=== PATIENT | female | born 1955 | race Caucasian/White ===

== ENCOUNTER → 2016-11-05 | Outpatient (CLI) | payer MEDICAID ==
[~2016-11-05] MED LIST: FLAX SEED OIL1000 M1 PO; MAGNESIUM CITR296 M1 PO; OYSTER CALCIUM500 MG PO; TUMERIC PO; VICODIN PO; VICOPROFEN 200-1 TAB PO; VITAMIN B12-FO1 EACH PO; VITAMIN C1000 M2 PO; VITAMIN D35000 UNIT PO
--- NOTE | ~2016-11-05 | MR103 ---
[facility] A Service of [facility] RADIOLOGY TEXT RESULTS PATIENT: RENALDO HERMAN LOCATION: [facility] : 51 UNIT #: [id number] AGE: [address]: ALLA MORTENSEN MD SEX: F ORDER DR: [id number] [address] [id number] MR#: [id number] Acc #: [id number] NAME: RENALDO HERMAN. : 1955 SEX: F STUDY DATE/TIME: 11/05/2016 11:07 UNIT: [facility] ROOM: STUDY DESCRIPTION: MR Knee Wo Contrast Lt Attending Physician: Alla Mortensen M.D. Referring Physician: Alla Mortensen M.D. Ordering Physician: Physician Non-Staff Primary Care Physician: Kathie Espinosa M.D. MRI CENTER REPORT This report is preliminary unless electronic signature is present. EXAM Left knee MRI without contrast, 11/05/2016 HISTORY 60-year-old female with left knee pain for 8-9 years. No specific injury. No prior left knee surgery. COMPARISON Left knee x-rays, 10/27/2016 TECHNIQUE Routine unenhanced multiplanar, multisequence high field MR imaging of the left knee was performed. FINDINGS There is a longitudinal horizontal oblique superior surface tear posterior horn of the medial meniscus. There is degenerative tearing of the body segment medial meniscus. There is a longitudinal horizontal oblique tear of the posterior horn and body segment of the lateral meniscus which contacts both articular surfaces. Cruciate and collateral ligaments appear intact. Extensor mechanism is intact. Moderate joint effusion with associated synovial proliferation. No popliteal cyst. Multifocal areas of high-grade chondromalacia throughout the patellofemoral joint. Prominent patellofemoral marginal osteophytes. There is moderate-grade chondromalacia along the weightbearing surfaces in the lateral compartment. Extensive full-thickness articular cartilage loss throughout the medial compartment with prominent subchondral marrow edema and cystic change in the medial femoral condyle and medial tibial STS. [facility] A Service of [facility] RADIOLOGY TEXT RESULTS PATIENT: RENALDO HERMAN LOCATION: [facility] : 51 UNIT #: [id number] AGE: [address]: ALLA MORTENSEN MD SEX: F ORDER DR: sandra. Prominent marginal osteophytes at the medial and lateral joint lines. Remainder of the bone marrow signal is within expected limits. Visualized musculature is unremarkable. IMPRESSION 1. Longitudinal horizontal oblique superior surface tear of the posterior horn medial meniscus with degenerative tearing of the body segment medial meniscus. The body segment is partially extruded from the medial joint line. 2. Longitudinal horizontal oblique tear of the posterior horn and body segment lateral meniscus, which contacts both articular surfaces. 3. No acute ligament injury. 4. Advanced tricompartmental arthrosis, detailed above. This is most severe in the medial compartment. 5. Moderate joint effusion with associated synovial proliferative change. Dictated by... Joon Granados M.D. THIS IS AN ELECTRONICALLY VERIFIED REPORT Joon Granados M.D. at 11/06/2016 4:58 PM Donna TD: 11/06/2016 09:30 JOB #: [id number] MRI CENTER REPORT Page 1 of 1
== END | disposition home or self-care (01) ==
LOC: SMRI 10:15
DX: M25.562 Pain in left knee (principal); M25.462 Effusion, left knee; M23.322 Other meniscus derangements, posterior horn of medial meniscus, left knee; M17.12 Unilateral primary osteoarthritis, left knee
CPT/HCPCS: 73721